=== PATIENT | male | born 1995 | race Hispanic/Latino ===

== ENCOUNTER 2019-01-29 22:13 | Emergency (ER) | payer OTHER ==
[2019-01-29] MEDS ORDERED: KETOROLAC TROMETHAMINE 30MG/ML ONE (22:34)
[2019-01-29] MEDS ORDERED: MORPHINE SULFATE 4 MG/1ML SYG ONE (22:34)
== END 2019-01-30 00:32 | disposition home or self-care (01) ==
LOC: EDH 22:13
DX: S06.0X0A Concussion without loss of consciousness, initial encounter (principal); S16.1XXA Strain of muscle, fascia and tendon at neck level, initial encounter; S70.02XA Contusion of left hip, initial encounter; V49.49XA Driver injured in collision with other motor vehicles in traffic accident, initial encounter; Y93.89 Activity, other specified; Y92.89 Other specified places as the place of occurrence of the external cause; Y99.8 Other external cause status
CPT/HCPCS: 70450; 72125; 72192; 96374; 96375; 99284; J1885; J2270

== ENCOUNTER 2020-02-07 00:08 | Emergency (ER) | payer BC, OTHER ==
[2020-02-07] MEDS ORDERED: LIDOCAINE HCL-MPF 1% 2ML VIAL ONE (00:41)
[2020-02-07] MEDS ORDERED: DEXAMETHASONE SOD PHOSPHATE 10MG/ML 1ML VIAL ONE (00:41)
[2020-02-07] MEDS ORDERED: CEFTRIAXONE SODIUM 1 GM ONE (00:41)
[2020-02-07] MEDS ORDERED: IBUPROFEN 800 MG TAB ONE (00:42)
[2020-02-07] MEDS ORDERED: ONDANSETRON ODT 4 MG TAB ONE (00:54)
== END 2020-02-07 01:09 | disposition home or self-care (01) ==
LOC: EDH 00:08
DX: J03.90 Acute tonsillitis, unspecified (principal)
CPT/HCPCS: 96372 ×2; 99284; J0696; J1100; J3490

== ENCOUNTER 2023-10-10 01:54 | Emergency (ER) | payer BC ==
[~2023-10-10] VITALS: Ht 177.8 cm; Wt 88.0 kg
[2023-10-10 01:57] VITALS: BP 123/62; PULSE 77; RESP 20
[2023-10-10 02:33] LABS: RAPID GROUP A STREP negative (NEGATIVE)
[2023-10-10 02:38] LABS: SARS-CoV-2, RNA, NAAT NEGATIVE SARS CoV-2 (NEGATIVE)
[2023-10-10 02:43] LABS: INFLUENZA TYPE A Negative For Type A (NEGATIVE); INFLUENZA TYPE B Negative For Type B (NEGATIVE)
[2023-10-10] MEDS ORDERED: PRED20TA3 PO (04:07)
[2023-10-10] MEDS ORDERED: IBUP-1493 PO (04:07)
[2023-10-10] MEDS ORDERED: ALBU90AE2 IH (04:14)
[2023-10-10] MEDS ORDERED: PREDNISONE 20 MG TABLET PO ONE (04:30)
== END 2023-10-10 04:34 | disposition home or self-care (01) ==
LOC: EDH 01:54
DX: B34.9 Viral infection, unspecified (principal); J20.9 Acute bronchitis, unspecified; Z79.1 Long term (current) use of non-steroidal anti-inflammatories (NSAID); Z20.822 Contact with and (suspected) exposure to COVID-19
CPT/HCPCS: 71045; 87635; 87804; 87880